=== PATIENT | male | born 1950 | race Caucasian/White ===

== ENCOUNTER 2017-04-18 15:45 | Emergency (ER) | payer OTHER ==
[~2017-04-18] VITALS: Ht 177.8 cm; Wt 106.9 kg
[~2017-04-18 15:45] MED LIST: ASPCH81 PO; CLX20 PO; CRS10 PO; LEVO1TAB PO; LISI-461 PO; MULTTAB58 PO
[2017-04-18 15:52] VITALS: TEMP 36.6; Ht 177.8 cm; Wt 106.9 kg
[2017-04-18] MEDS ORDERED: LIDOCAINE/EPINEPHRINE 1% 20 ML VIAL INFIL STA (16:08)
[2017-04-18] MEDS ORDERED: IBUP-103 PO (16:25)
[2017-04-18] MEDS ORDERED: ASPI81TA28 PO (16:25)
[2017-04-18] MEDS ORDERED: CITA20TA4 PO (16:25)
[2017-04-18] MEDS ORDERED: FLUT0.15 NAE (16:25)
[2017-04-18] MEDS ORDERED: LOSA50TA54 PO (16:25)
[2017-04-18] MEDS ORDERED: LEVO150T9 PO (16:25)
[2017-04-18] MEDS ORDERED: CRS/10 PO (16:25)
[2017-04-18] MEDS ORDERED: TRAV0.00 OPB (16:25)
[2017-04-18] MEDS ORDERED: MULT-506 PO (16:26)
[2017-04-18] MEDS ORDERED: CHLORHEXIDINE GLUCONATE 0.12% 480 ML MT STA (17:13)
[2017-04-18] MEDS ORDERED: AMOX500T3 PO (17:18)
--- NOTE | 2017-04-18 17:24 | EMERGENCY ROOM VISIT NOTE ---
ED Visit Note First contact with patient: 15:56 CHIEF COMPLAINT: Facial laceration HISTORY OF PRESENT ILLNESS: This 66-year-old male patient presents emergency department ambulatory, complaining of a laceration to the face, just superior to the upper lip, and through the inner gum. The patient states he always eating earlier today, and talking with family. He states he began laughing, however he has been dealing with a sinusitis for a while which has an associated cough. The patient states when he starts laughing, heat and began coughing, and he went into his office due to the cough. The patient states he had his head down, was leaned over the trash can, then when he attempted to rise , he hit his face off of the corner of his desk. The patient did fracture a tooth, and states he has a laceration from the inner gum which communicates with the outer skin. There was no loss of consciousness, vomiting, or unusual behavior afterwards. Denies neck pain. No headache, nausea, or blurred vision. There is moderate bleeding. The patient rates the pain as minimal and 4/10. The patient's tetanus shot is up to date. The patient is not on blood thinners, however he does take a baby aspirin per day. REVIEW OF SYSTEMS: A 6 system review of systems was completed with positives and pertinent negatives listed in the HPI. ALLERGIES: None MEDICATIONS: Lisinopril, Crestor, Synthroid, aspirin, Celexa, multivitamin PMH: Hypertension, hyperlipidemia, hypothyroidism SOCIAL HISTORY: The patient lives locally with family. She denies drug, alcohol , tobacco use. PHYSICAL EXAM: Vital Signs: Reviewed Nurse's notes, vital signs stable. GENERAL : This is a 66-year-old white male, in no acute distress, well-developed, well- nourished. NEURO: The patient is alert and oriented to person place and time. No focal neurological defects. EYES: Pupils are round, equal, and react to light. EOMI. EARS: No hemotympanum. NECK: Supple. No cervical spine tenderness. FACE: No facial bone tenderness or mandibular tenderness. The mouth can open fully. The teeth are well aligned. No loose or chipped teeth. SKIN: There is a 2 cm very irregularly shaped laceration on the skin between the upper vermilion border and nose. The edges gape apart with traction. There is mild active bleeding and no foreign material in the wound. The wound does communicate to the inner gum, and there is a 1cm laceration within the upper gum intra-orally. The #11 tooth is fractured. Capillary refill less than two seconds. Normal sensation to light and sharp touch. EMERGENCY DEPARTMENT COURSE: I examined the patient. Verbal consent was obtained to perform the procedure. Using sterile technique the wound was cleansed with Betadine. The area was sterilely draped. 2 ml of 1% lidocaine with epinephrine was used to anesthetize the laceration on the face. Once the patient was anesthetized, the wound was copiously irrigated under pressure with sterile saline. The wound was explored and was as described above. The laceration was repaired using 8 simple interrupted 6-0 nylon sutures with the wound edges being well approximated. The laceration on the internal lip was then anesthetized with approximately 1ml of 1% lidocaine with epinephrine. The wound was copiously irrigated under pressure with sterile saline. The laceration was repaired using 3 interrupted 5-0 Vicryl sutures with the wound edges being well approximated. The patient tolerated the procedure well. Hemostasis was achieved. The area was cleaned with sterile saline and dressed with bacitracin ointment. The patient's blood pressure was re-checked several times and continued to be elevated. The patient states he feels that he is very worked up and stressed at the moment. He will follow-up with his PCP and re- check his BP tomorrow. The patient was discharged home in good condition. Blood Pressure Screening: Patient was found to have a slightly elevated blood pressure due to circumstances. I do not believe that the patient requires hypertension monitoring. I attest that I have personally reviewed the patient's current medication list. DIFFERENTIAL DIAGNOSIS: Laceration, dental fracture, contusion, abrasion, intraoral laceration, and others DIAGNOSIS: Facial laceration, intraoral laceration, tooth fracture Current/Historical Medications Scheduled Amoxicillin (Amoxil), 1 TAB PO TID Aspirin (Aspirin Ec), 81 MG PO DAILY Citalopram Hydrobromide (Citalopram Hydrobromide), 20 MG PO DAILY Levothyroxine Sodium (Levothyroxine Sodium), 150 MCG PO DAILY Losartan Potassium (Cozaar), 50 MG PO DAILY Multivitamin (Multivitamin), 1 TAB PO DAILY Rosuvastatin Calcium (Crestor), 10 MG PO DAILY Travoprost (Travatan Z), 1 DROP OPB HS Scheduled PRN Fluticasone Propionate (Nasal) (Flonase Allergy Relief), 2 SPRAYS LUIS ENRIQUE DAILY PRN for Nasal Congestion Ibuprofen Tab (Advil), 400 MG PO Q4H PRN for Pain Allergies Coded Allergies: No Known Allergies (Unverified , 06/09/11) Vital Signs Date Time Temp Pulse Resp B/P (MAP) Pulse Ox O2 Delivery O2 Flow Rate FiO2 04/18/17 17:40 67 16 161/109 95 Room Air 04/18/17 15:52 36.6 73 18 189/101 97 Room Air Medications Administered Medications (Trade) Dose Ordered Sig/Geri Route Start Time Stop Time Status Last Admin Dose Admin Lidocaine/ Epinephrine (Xylocaine/Epine 1% Inj) 20 ml NOW STAT INFIL 04/18/17 16:08 04/18/17 16:10 DC 04/18/17 16:15 20 ML Chlorhexidine Gluconate (Peridex Oral Soln) 15 ml BID STAT MT 04/18/17 17:13 04/18/17 17:15 DC 04/18/17 17:43 15 ML Departure Information Impression Primary Impression: Laceration of intraoral region without complication Additional Impressions: Facial laceration Tooth fracture Dispostion Home / Self-Care Condition GOOD Prescriptions Amoxicillin (AMOXIL) 500 Mg Tab 1 TAB PO TID for 7 Days, #21 TAB Prov: Ольга King PA-C 04/18/17 Referrals Manuel Rivas D.OMichael (PCP) Patient Instructions ED Laceration Facial Sutr Tape, [facility], [facility] Additional Instructions You have received 8 sutures on your face. These sutures are NOT dissolvable and WILL need to be removed by a health care provider in 4-5 days. You can return to the Emergency Department or contact your Primary Care Provider to have the sutures removed. You did receive 3 absorbable sutures inside the upper lip which will dissolve on their own. If the laceration has healed, but the knot remains, the knot may be removed by a healthcare provider. You were prescribed amoxicillin to be taken 3 times daily. This is an antibiotic. All antibiotics have the potential to cause diarrhea. Stop this medication and contact a medical provider if you were to develop any significant adverse side effects including: wheezing, shortness of breath, passing out, vomiting, or a diffuse rash. Always take antibiotics as directed and COMPLETE the ENTIRE course regardless of the improvement of your symptoms. You were given chlorhexidine mouthwash to be used twice daily to help prevent infection. You should swish and spit this mouthwash. Keep food lukewarm or cold and soft. You should avoid food which may get stuck within the laceration inside of the mouth. Food which is too hot may dissolve the sutures before the wound has fully healed. You may swish and spit with ice water to help with pain and bleeding. Proper wound care is essential for adequate wound healing and infection prevention. You can shower and clean the wound with soap and water. Do not scour over the wound, pat dry with a towel. Do not submerse the wound (i.e. bathe or dish wash) until the sutures have been removed. You can use an antibiotic ointment with a dressing over the wound for the next 3-4 days. After this time you may leave the wound dry and open to the air. If crust develops over the wound you can use a Q-tip to apply a 1:1 peroxide:water solution to clean the wound. Look for signs of infection of the wound including: increased pain, swelling, foul discharge, streaking, or increased temperature. If any of these are noticed you should return to the Emergency Department for further assessment and treatment. As with any laceration you may have received nerve damage to the surrounding tissues. This damage may or may not be permanent. You should keep the area covered with sunscreen for the first 6 months to 1 year when at risk for exposure to help minimize scarring. You can also use scar reducing creams or Vitamin E oil to help minimize scarring. For pain control, you can use the following [id number] medicines (if >12 yo): Ibuprofen(Motrin, Advil) may be used for fever or pain. Use 600mg every six hours as needed. Take with food. Avoid using more than 2400mg in a 24 hour period. Do not use 2400mg per day for more than three consecutive days without physician direction. Prolonged inappropriate use can lead to stomach upset or ulcers. (AND/OR) Acetaminophen(Tylenol) may be used for fever or pain. Use 1000mg every six hours as needed. Avoid using more than 3000mg in a 24 hour period. Return to the emergency department if your symptoms worsen despite treatment course outlined above. Follow-up with the dentist at your scheduled appointment tomorrow. Problem Qualifiers Primary Impression: Laceration of intraoral region without complication Encounter type: initial encounter Qualified Codes: S01.512A - Laceration without foreign body of oral cavity, initial encounter Additional Impressions: Facial laceration Encounter type: initial encounter Qualified Codes: S01.81XA - Laceration without foreign body of other part of head, initial encounter Tooth fracture Encounter type: initial encounter Fracture type: open Qualified Codes: S02.5XXB - Fracture of tooth (traumatic), initial encounter for open fracture
[2017-04-18 17:40] VITALS: BP 161/109; PULSE 67; O2SAT 95
== END 2017-04-18 17:50 | disposition home or self-care (01) ==
LOC: C.EDB 15:46 → C.EDD 17:50
DX: S01.81XA Laceration without foreign body of other part of head, initial encounter (principal); S01.512A Laceration without foreign body of oral cavity, initial encounter; S02.5XXB Fracture of tooth (traumatic), initial encounter for open fracture; W22.8XXA Striking against or struck by other objects, initial encounter; Y92.9 Unspecified place or not applicable; I10 Essential (primary) hypertension; E78.5 Hyperlipidemia, unspecified; E03.9 Hypothyroidism, unspecified

== ENCOUNTER 2022-05-21 10:29 | Observation (INO) ==
[2022-05-21] MEDS ORDERED: SODIUM CHLORIDE 0.9% 1000ML 500 ML IV ONE (11:04)
--- NOTE | 2022-05-21 11:06 | Emergency Department Note ---
Impression & Plan TIA (transient ischemic attack) ADMIT ED Provider Note HPI: The patient is a very pleasant 71-year-old gentleman with history of hyperlipidemia, hypertension, chronic sinusitis, presents the emergency department with a chief complaint of generalized weakness. Patient states that over the past 3 to 4 days he has had a sensation of generally feeling weak and ill. He states he has had some night sweats, patient also states that he has had intermittent episodes of bilateral lower extremity "numbness" as well as the same sensation in his left upper extremity. He states the symptoms have been intermittent over the past 2 days. On arrival here to the ED the patient is hypertensive but otherwise hemodynamically stable, he is saturating well on room air on arrival, he is afebrile on arrival. ROS: - Per HPI *Outpatient medications and allergy history reviewed. *Pertinent external medical records reviewed. PE: General: Alert HEENT: Normocephalic, trachea midline Eyes: Extraocular eye movement is intact, no scleral erythema Pulmonary: Clear to auscultation bilaterally, no wheezing Cardio: Regular rate and rhythm GI: Abdomen is soft, nontender : No suprapubic tenderness MSK: No evidence of trauma or malformation of the extremities, no edema Skin: No evidence of rash Neuro: Alert, no focal deficits, equal bilateral orthotic and prosthetic technician strength, no drift of the upper extremities or lower extremities with testing against gravity, symmetrical facial movements are appreciated Psychiatric: Cooperative metaphysician: - An order was placed for continuous cardiac monitoring - Patient was noted to be in sinus rhythm with a rate of 90 EKG: (As interpreted by myself): Rate: 95 Rhythm: Sinus rhythm Intervals: [place] interval prolonged at 208 ms, otherwise within normal limits ST changes: No ST elevation Time: 1104 Interventions provided in ED: -IV labetalol NIH STROKE SCALE: 1A: Level of consciousness Alert; keenly responsive 0 1B: Ask month and age Both questions right 0 1C: 'Blink eyes' & 'squeeze hands' Performs both tasks 0 2: Horizontal extraocular movements Normal 0 3: Visual chao No visual loss 0 4: Facial palsy Normal symmetry 0 5A: Left arm motor drift No drift for 10 seconds 0 5B: Right arm motor drift No drift for 10 seconds 0 6A: Left leg motor drift No drift for 5 seconds 0 6B: Right leg motor drift No drift for 5 seconds 0 7: Limb Ataxia No ataxia 0 8: Sensation Normal; no sensory loss 0 9: Language/aphasia Normal; no aphasia 0 10: Dysarthria Normal 0 11: Extinction/inattention No abnormality 0 TOTAL NIH SCORE =0 Medical Decision Making: Patient is a 71-year-old gentleman who presented to the emergency department with transient paresthesias and a generalized feeling of illness. IV was established, lab work obtained, patient was placed on choker hooker. Patient's blood pressure remained persistently elevated in the 190 systolic and therefore was given a dose of IV labetalol with good improvement. He denies any chest pain or shortness of breath. EKG shows sinus rhythm without any acute ischemic changes. Troponin is negative. Given the patient's complaint of transient paresthesias including of the left upper extremity and bilateral lower extremities, CT imaging of the brain without contrast as well as CT angiography was obtained that does not show any evidence of acute or subacute stroke. On reassessment patient states he feels improved, states that he does feel some improvement in his symptoms following a dose of IV labetalol with improvement in his blood pressures into the 130s. I do have concern that given the patient's blood pressure, age, that he may have been experiencing a transient ischemic attack. He required IV medications here in the ED to bring his blood pressure down. Patient does admit to intermittent bilateral lower extremity numbness sensation. His motor function is intact on my exam. He does not have any red flag findings for cauda equina syndrome, no urinary incontinence or retention, no saddle anesthesia. No back pain. I discussed possible admission with the patient and his for secondary TIA work-up and they are in agreement. Case was then discussed with the on-call hospitalist, Dr. Sanchez with [facility], who is in agreement to admit the patient to a telemetry bed for further management. Patient was admitted in stable condition. Disposition discussion held by myself with: Patient and * CRITICAL CARE TIME: ( 36 ) minutes -Management of hypertensive urgency/emergency with transient paresthesias and TIA symptoms requiring IV antihypertensives for improvement, time spent at the bedside, discussion with other physicians and arrangement of admission Diagnosis: 1. TIA symptoms 2. Transient paresthesias 3. Hypertensive urgency 4. Generalized weakness of unknown origin Disposition: Admission Daniel Salazar DO Emergency Medicine Past Med/Surg History Medical History (Updated 05/21/22 @ 14:31 by Daniel Salazar DO) Anxiety Depression Glaucoma Hyperlipidemia Hypertension Hyperthyroidism Surgical History History of adenoidectomy History of cholecystectomy History of colonoscopy History of endoscopic sinus surgery History of tonsillectomy Hx of prostate biopsy HX OF ELEVATED PSA LEVELS (BENIGN) Family History Father Family history of diabetes mellitus Sister Family history of diabetes mellitus Brother Family history of diabetes mellitus Social History Smoking Status: Never smoker Second Hand Exposure: No; Hx Alcohol Use: Yes Alcohol type: hard liquor Hx Substance Use: No Preferred Language: Uzbek Communication Ability: Effective 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 Required: No Beliefs That Will Affect Care: None Current Living Situation: Spouse Feels Safe at Home: Yes Assistive Devices: Glasses Allergies Allergies Allergy/AdvReac Type Severity Reaction Status Date / Time No Known Allergies Allergy Verified 03/13/18 08:37 Home Meds Home Medications Medication Instructions Recorded Confirmed albuterol sulfate 90 mcg/actuation 1 puff inhalation 2XD PRN 05/21/22 05/21/22 aerosol inhaler Shortness Of Breath amlodipine 5 mg tablet 5 mg PO DAILY 05/21/22 05/21/22 aspirin 81 mg capsule 81 mg PO DAILY 05/21/22 05/21/22 azelastine 137 mcg (0.1 %) nasal 1 spray intranasal BID 05/21/22 05/21/22 spray aerosol citalopram 20 mg tablet 20 mg PO DAILY 05/21/22 05/21/22 levothyroxine 150 mcg tablet 150 mcg PO DAILY 05/21/22 05/21/22 losartan 50 mg tablet 50 mg PO DAILY 05/21/22 05/21/22 rosuvastatin 10 mg tablet 10 mg PO DAILY 05/21/22 05/21/22 tamsulosin 0.4 mg capsule 0.4 mg PO DAILY 05/21/22 05/21/22 Results & Data (ED) Vital Signs Vital Signs - 24 hr 05/21/22 10:31 05/21/22 11:01 05/21/22 13:26 Temperature 36.5 C Temperature Source Temporal Artery Scan Pulse Rate 98 H Pulse Rate [Right Brachial] 93 H Pulse Rhythm [Right Brachial] Regular Pulse Strength [Right Brachial] Normal Respiratory Rate 18 19 Respiratory Effort / Characteristics Non-Labored Spontaneous Non-Labored Spontaneous Respiratory Depth Normal Normal Respiratory Pattern Regular Regular Blood Pressure 199/113 H Blood Pressure [Right Arm] 191/91 H 193/96 H Blood Pressure Mean 141 Blood Pressure Mean [Right Arm] 124 128 Blood Pressure Position Sitting Blood Pressure Position [Right Arm] Lying Lying Pulse Oximetry 98 99 Oxygen Delivery Method Room Air Room Air Sepsis Recent Fever Within 48 Hours No Sepsis New/Unexplained Change in Mental Status N/A Sepsis Action Taken by Nursing No Action Required 05/21/22 14:30 05/21/22 14:32 Temperature Temperature Source Pulse Rate Pulse Rate [Right Brachial] Pulse Rhythm [Right Brachial] Pulse Strength [Right Brachial] Respiratory Rate Respiratory Effort / Characteristics Respiratory Depth Respiratory Pattern Blood Pressure Blood Pressure [Right Arm] 144/95 H 144/95 H Blood Pressure Mean Blood Pressure Mean [Right Arm] 111 111 Blood Pressure Position Blood Pressure Position [Right Arm] Pulse Oximetry Oxygen Delivery Method Sepsis Recent Fever Within 48 Hours Sepsis New/Unexplained Change in Mental Status Sepsis Action Taken by Nursing Laboratory Data 05/21/22 11:10 05/21/22 12:35 Lab Results 05/21/22 05/21/22 05/21/22 Range/Units 11:10 11:10 11:10 WBC 6.87 (4.8-10.8) K/ul RBC 5.05 (4.63-6.08) M/uL Hgb 15.9 (14.0-18.0) g/dl Hct 45.2 (40.1-51.0) % MCV 89.5 (80.0-100.0) fL MCH 31.5 (25.0-34.0) pg MCHC 35.2 (32.0-36.0) g/dL RDW Std Deviation 42.4 (36.4-46.3) fL RDW Coeff of Ayesha 12.9 (11.5-14.5) % Plt Count 161 (130-400) K/uL MPV 10.1 (9.4-12.4) fL Immature Gran % (Auto) 0.6 % Neut % (Auto) 58.1 % Lymph % (Auto) 32.3 % Den[place] % (Auto) 8.3 % Eos % (Auto) 0.0 % Baso % (Auto) 0.7 % Neut # (Auto) 3.99 (1.4-6.5) K/uL Lymph # (Auto) 2.22 (1.2-3.4) K/uL [place] # (Auto) 0.57 (0.24-0.82) K/uL Eos # (Auto) 0.00 (0-0.50) K/uL Baso # (Auto) 0.05 (0-0.2) K/uL Immature Gran # (Auto) 0.04 H (0.00-0.02) K/uL PT Cancelled INR Cancelled APTT Cancelled PTT Ratio Cancelled Sodium 139 (136-145) mmol/L Potassium TNP Chloride 106 (98-107) mmol/L Carbon Dioxide 26 (21-32) mmol/L Anion Gap 7 (3-11) BUN 13 (6-23) mg/dl Creatinine 0.92 (0.6-1.4) mg/dl Est Cr Clr Drug Dosing 92.6 ml/min Est GFR ( Amer) 98.0 ml/min Est GFR (Non-Af Amer) 84.6 ml/min BUN/Creatinine Ratio 14.1 (10-20) Glucose 99 (70-99(Fasting)) mg/dl POC Glucose (70-99) mg/dl Calcium 9.1 (8.5-10.1) mg/dl Magnesium 2.1 (1.7-2.4) mg/dl Total Bilirubin 0.8 (0.2-1.0) mg/dl AST TNP ALT 13 (7-52) U/L Alkaline Phosphatase 74 (34-104) U/L Troponin I High Sens 15.6 (0-20) pg/ml Total Protein 7.0 (6.0-8.3) gm/dl Albumin 4.4 (3.4-5.0) gm/dl Globulin 2.6 (2.5-4.0) gm/dl Albumin/Globulin Ratio 1.7 (0.9-2) SARS-CoV-2 (PCR) (Negative) Influenza Type A (PCR) (Neg) Influenza Type B (PCR) (Neg) RSV (RT-PCR) (Neg) 05/21/22 05/21/22 05/21/22 Range/Units 11:20 11:26 12:34 WBC (4.8-10.8) K/ul RBC (4.63-6.08) M/uL Hgb (14.0-18.0) g/dl Hct (40.1-51.0) % MCV (80.0-100.0) fL MCH (25.0-34.0) pg MCHC (32.0-36.0) g/dL RDW Std Deviation (36.4-46.3) fL RDW Coeff of Ayesha (11.5-14.5) % Plt Count (130-400) K/uL MPV (9.4-12.4) fL Immature Gran % (Auto) % Neut % (Auto) % Lymph % (Auto) % [place] % (Auto) % Eos % (Auto) % Baso % (Auto) % Neut # (Auto) (1.4-6.5) K/uL Lymph # (Auto) (1.2-3.4) K/uL [place] # (Auto) (0.24-0.82) K/uL Eos # (Auto) (0-0.50) K/uL Baso # (Auto) (0-0.2) K/uL Immature Gran # (Auto) (0.00-0.02) K/uL PT 10.8 INR 1.0 APTT 26.6 PTT Ratio 1.0 Sodium (136-145) mmol/L Potassium Chloride (98-107) mmol/L Carbon Dioxide (21-32) mmol/L Anion Gap (3-11) BUN (6-23) mg/dl Creatinine (0.6-1.4) mg/dl Est Cr Clr Drug Dosing ml/min Est GFR ( Amer) ml/min Est GFR (Non-Af Amer) ml/min BUN/Creatinine Ratio (10-20) Glucose (70-99(Fasting)) mg/dl POC Glucose 97 (70-99) mg/dl Calcium (8.5-10.1) mg/dl Magnesium (1.7-2.4) mg/dl Total Bilirubin (0.2-1.0) mg/dl AST ALT (7-52) U/L Alkaline Phosphatase (34-104) U/L Troponin I High Sens (0-20) pg/ml Total Protein (6.0-8.3) gm/dl Albumin (3.4-5.0) gm/dl Globulin (2.5-4.0) gm/dl Albumin/Globulin Ratio (0.9-2) SARS-CoV-2 (PCR) NEGATIVE (Negative) Influenza Type A (PCR) Negative (Neg) Influenza Type B (PCR) Negative (Neg) RSV (RT-PCR) Negative (Neg) 05/21/22 Range/Units 12:35 WBC (4.8-10.8) K/ul RBC (4.63-6.08) M/uL Hgb (14.0-18.0) g/dl Hct (40.1-51.0) % MCV (80.0-100.0) fL MCH (25.0-34.0) pg MCHC (32.0-36.0) g/dL RDW Std Deviation (36.4-46.3) fL RDW Coeff of Ayesha (11.5-14.5) % Plt Count (130-400) K/uL MPV (9.4-12.4) fL Immature Gran % (Auto) % Neut % (Auto) % Lymph % (Auto) % [place] % (Auto) % Eos % (Auto) % Baso % (Auto) % Neut # (Auto) (1.4-6.5) K/uL Lymph # (Auto) (1.2-3.4) K/uL [place] # (Auto) (0.24-0.82) K/uL Eos # (Auto) (0-0.50) K/uL Baso # (Auto) (0-0.2) K/uL Immature Gran # (Auto) (0.00-0.02) K/uL PT INR APTT PTT Ratio Sodium (136-145) mmol/L Potassium 3.9 Chloride (98-107) mmol/L Carbon Dioxide (21-32) mmol/L Anion Gap (3-11) BUN (6-23) mg/dl Creatinine (0.6-1.4) mg/dl Est Cr Clr Drug Dosing ml/min Est GFR ( Amer) ml/min Est GFR (Non-Af Amer) ml/min BUN/Creatinine Ratio (10-20) Glucose (70-99(Fasting)) mg/dl POC Glucose (70-99) mg/dl Calcium (8.5-10.1) mg/dl Magnesium (1.7-2.4) mg/dl Total Bilirubin (0.2-1.0) mg/dl AST 16 ALT (7-52) U/L Alkaline Phosphatase (34-104) U/L Troponin I High Sens (0-20) pg/ml Total Protein (6.0-8.3) gm/dl Albumin (3.4-5.0) gm/dl Globulin (2.5-4.0) gm/dl Albumin/Globulin Ratio (0.9-2) SARS-CoV-2 (PCR) (Negative) Influenza Type A (PCR) (Neg) Influenza Type B (PCR) (Neg) RSV (RT-PCR) (Neg) Administered Medications Discontinued Medications Sodium Chloride (Nss 1000ml) 500 mls @ 999 mls/hr IV .Q31M ONE Stop: 05/21/22 11:34 Last Infusion: 05/21/22 11:52 Dose: 0 mls/hr Documented By: Admin: 05/21/22 11:18 Dose: 999 mls/hr Documented By: EWA Ioversol (Optiray 320 500ml) 117 ml IV ONCE ONE Stop: 05/21/22 12:10 Last Admin: 05/21/22 12:10 Dose: 117 ml Documented By: NILE Labetalol HCl (Labetalol Hcl Iv 5 Mg/Ml 20ml) 20 mg IV NOW STA Stop: 05/21/22 13:41 Last Admin: 05/21/22 13:45 Dose: 20 mg Documented By: EAW Co-signed By: STEVO Imaging Data Radiologist's Impression: Head CT 05/21/22 11:03 CT angio head w con, CT angio neck with con, CT head/brain wo con CLINICAL HISTORY: 71 years-old Male with neuro deficit, acute stroke suspected. Acute strokelike symptoms COMPARISON STUDY: None TECHNIQUE: Unenhanced axial CT scan of the brain is performed. Subsequently, following the IV administration of 117 cc of Optiray, CT angiogram of the head and neck was performed from the skull base to the vertex. Images are reviewed in the axial, sagittal, and coronal planes. 3-D MIPS images are created and assessed. IV contrast was administered without complication. All measurements were obtained according to NASCET criteria. A dose lowering technique was utilized adhering to the principles of ALARA. CT DOSE: 1242.62 mGy.cm FINDINGS: CT BRAIN: There is no acute intracranial hemorrhage, midline shift, hydrocephalus, intracranial mass, territorial ischemia or abnormal extra-axial collections. No abnormal intra-axial or extra-axial enhancement. Coarse calcifications of the falx cerebri. Mild involutional changes of the brain parenchyma. Mastoid air cells and middle ear cavities are clear. No calvarial fracture. Trace mastoid effusions. Moderate to severe mucosal thickening of the paranasal sinuses with chronic postoperative changes of the paranasal sinuses and nasal turbinates. Prior bilateral lens repair. CT ANGIOGRAM OF THE HEAD AND NECK: Three-vessel morphology of the thoracic aorta. There is patency of the innominate and imaged subclavian arteries. Moderate atherosclerotic plaque of the carotid bulbs and proximal cervical segments of the internal carotid arteries, right greater than left resulting in less than 50% stenosis. The bilateral anterior and middle cerebral arteries are also patent. The vertebrobasilar system and posterior cerebral arteries are patent. There is mild multifocal luminal narrowing of the posterior cerebral arteries. There is no aneurysm, high-grade stenosis, or proximal branch occlusion identified. Dural sinuses appear patent. No acute cervical spine fracture. The lung apices are clear without pneumothorax. Unremarkable soft tissues. IMPRESSION: 1. No acute intracranial abnormality. 2. Moderate atherosclerotic plaque of the right greater than left carotid bulbs and proximal cervical segments of the internal carotid arteries resulting in less than 50% stenosis. 3. Otherwise unremarkable CTA of the head and neck. 4. Moderate to severe paranasal sinus disease. ACT 112: Negative or not required by law. The above report was generated using voice recognition software. It may contain grammatical, syntax or spelling errors. Electronically signed by: Leo Hernandez M.D. 05/21/2022 12:46 PM Head CTA 05/21/22 11:03 CT angio head w con, CT angio neck with con, CT head/brain wo con CLINICAL HISTORY: 71 years-old Male with neuro deficit, acute stroke suspected. Acute strokelike symptoms COMPARISON STUDY: None TECHNIQUE: Unenhanced axial CT scan of the brain is performed. Subsequently, following the IV administration of 117 cc of Optiray, CT angiogram of the head and neck was performed from the skull base to the vertex. Images are reviewed in the axial, sagittal, and coronal planes. 3-D MIPS images are created and assessed. IV contrast was administered without complication. All measurements were obtained according to NASCET criteria. A dose lowering technique was utilized adhering to the principles of ALARA. CT DOSE: 1242.62 mGy.cm FINDINGS: CT BRAIN: There is no acute intracranial hemorrhage, midline shift, hydrocephalus, intracranial mass, territorial ischemia or abnormal extra-axial collections. No abnormal intra-axial or extra-axial enhancement. Coarse calcifications of the falx cerebri. Mild involutional changes of the brain parenchyma. Mastoid air cells and middle ear cavities are clear. No calvarial fracture. Trace mastoid effusions. Moderate to severe mucosal thickening of the paranasal sinuses with chronic postoperative changes of the paranasal sinuses and nasal turbinates. Prior bilateral lens repair. CT ANGIOGRAM OF THE HEAD AND NECK: Three-vessel morphology of the thoracic aorta. There is patency of the innominate and imaged subclavian arteries. Moderate atherosclerotic plaque of the carotid bulbs and proximal cervical segments of the internal carotid arter ies, right greater than left resulting in less than 50% stenosis. The bilateral anterior and middle cerebral arteries are also patent. The vertebrobasilar system and posterior cerebral arteries are patent. There is mild multifocal luminal narrowing of the posterior cerebral arteries. There is no aneurysm, high-grade stenosis, or proximal branch occlusion identified. Dural sinuses appear patent. No acute cervical spine fracture. The lung apices are clear without pneumoth orax. Unremarkable soft tissues. IMPRESSION: 1. No acute intracranial abnormality. 2. Moderate atherosclerotic plaque of the right greater than left carotid bulbs and proximal cervical segments of the internal carotid arteries resulting in less than 50% stenosis. 3. Otherwise unremarkable CTA of the head and neck. 4. Moderate to severe paranasal sinus disease. ACT 112: Negative or not required by law. The above report was generated using voice recognition software. It may contain grammatical, syntax or spelling errors. Electronically signed by: Leo Hernandez M.D. 05/21/2022 12:46 PM Neck CTA 05/21/22 11:03 CT angio head w con, CT angio neck with con, CT head/brain wo con CLINICAL HISTORY: 71 years-old Male with neuro deficit, acute stroke suspected. Acute strokelike symptoms COMPARISON STUDY: None TECHNIQUE: Unenhanced axial CT scan of the brain is performed. Subsequently, following the IV administration of 117 cc of Optiray, CT angiogram of the head and neck was performed from the skull base to the vertex. Images are reviewed in the axial, sagittal, and coronal planes. 3-D MIPS images are created and assess ed. IV contrast was administered without complication. All measurements were obtained according to NASCET criteria. A dose lowering technique was utilized adhering to the principles of ALARA. CT DOSE: 1242.62 mGy.cm FINDINGS: CT BRAIN: There is no acute intracranial hemorrhage, midline shift, hydrocephalus, intracranial mass, territorial ischemia or abnormal extra-axial collections. No abnormal intra-axial or extra-axial enhancement. Coarse calcifications of the falx cerebri. Mild involutional changes of the brain parenchyma. Mastoid air cells and middle ear cavities are clear. No calvarial fracture. Trace mastoid effusions. Moderate to severe mucosal thickening of the paranasal sinuses with chronic postoperative changes of the paranasal sinuses and nasal turbinates. Prior bilateral lens repair. CT ANGIOGRAM OF THE HEAD AND NECK: Three-vessel morphology of the thoracic aorta. There is patency of the innominate and imaged subclavian arteries. Moderate atherosclerotic plaque of the carotid bulbs and proximal cervical segments of the internal carotid arteries, right greater than left resulting in less than 50% stenosis. The bilateral anterior and middle cerebral arteries are also patent. The vertebrobasilar system and posterior cerebral arteries are patent. There is mild multifocal luminal narrowing of the posterior cerebral arteries. There is no aneurysm, high-grade stenosis, or proximal branch occlusion identified. Dural sinuses appear patent. No acute cervical spine fracture. The lung apices are clear without pneumothorax. Unremarkable soft tissues. IMPRESSION: 1. No acute intracranial abnormality. 2. Moderate atherosclerotic plaque of the right greater than left carotid bulbs and proximal cervical segments of the internal carotid arteries resulting in less than 50% stenosis. 3. Otherwise unremarkable CTA of the head and neck. 4. Moderate to severe paranasal sinus disease. ACT 112: Negative or not required by law. The above report was generated using voice recognition software. It may contain grammatical, syntax or spelling errors. Electronically signed by: Leo Hernandez M.D. 05/21/2022 12:46 PM Discharge Plan Visit Data Chief Complaint: Illness Stated Complaint: TINGLING DOWN LEG, LEFT ARM NUMBNESS ED Provider: Daniel Salazar Discharge Problem: TIA (transient ischemic attack) Forms Stand Alone Forms: My [facility] Prescriptions Prescriptions: No Action losartan 50 mg tablet 50 mg PO DAILY amlodipine 5 mg tablet 5 mg PO DAILY citalopram 20 mg tablet 20 mg PO DAILY tamsulosin 0.4 mg capsule 0.4 mg PO DAILY levothyroxine 150 mcg tablet 150 mcg PO DAILY azelastine 137 mcg (0.1 %) aerosol,spray 1 spray INTRANASAL BID albuterol sulfate 90 mcg/actuation HFA aerosol inhaler 1 puff INHALATION 2XD PRN (Reason: Shortness Of Breath) rosuvastatin 10 mg tablet 10 mg PO DAILY aspirin 81 mg Capsule 81 mg PO DAILY Referrals Referrals: Manuel Rivas DO [Physician] -
[2022-05-21 11:28] LABS: Basophils # (auto) 0.05 K/uL (0-0.2); Basophils % (auto) 0.7 %; Hematocrit (blood only) 45.2 % (40.1-51.0); Hemoglobin 15.9 g/dl (14.0-18.0); Immature Granulocytes # (auto) 0.04 K/uL (0.00-0.02); Immature Granulocytes % (auto) 0.6 %; Lymphocytes # (auto) 2.22 K/uL (1.2-3.4); Lymphocytes % (auto) 32.3 %; Mean Corpuscular Hemoglobin 31.5 pg (25.0-34.0); Mean Corpuscular Hgb Conc 35.2 g/dL (32.0-36.0); Mean Corpuscular Volume 89.5 fL (80.0-100.0); Mean Platelet Volume 10.1 fL (9.4-12.4); Monocytes # (auto) 0.57 K/uL (0.24-0.82); Monocytes % (auto) 8.3 %; Neutrophils # (auto) 3.99 K/uL (1.4-6.5); Neutrophils % (auto) 58.1 %; Platelet Count 161 K/uL (130-400); RDW Coefficient of Variation 12.9 % (11.5-14.5); RDW Standard Deviation 42.4 fL (36.4-46.3); Red Blood Count 5.05 M/uL (4.63-6.08); White Blood Count 6.87 K/ul (4.8-10.8)
[2022-05-21 12:00] LABS: Alanine Aminotransferase 13 U/L (7-52); Albumin Globulin Ratio 1.7 (0.9-2); Albumin Level 4.4 gm/dl (3.4-5.0); Alkaline Phosphatase 74 U/L (34-104); Anion Gap 7 (3-11); BUN Creatinine Ratio 14.1 (10-20); Bilirubin,Total 0.8 mg/dl (0.2-1.0); Blood Urea Nitrogen 13 mg/dl (6-23); Calcium 9.1 mg/dl (8.5-10.1); Carbon Dioxide 26 mmol/L (21-32); Chloride 106 mmol/L (98-107); Creatinine Clr Calc Pharmacy 92.6 ml/min; Est GFR (Non-African American) 84.6 ml/min; Globulin 2.6 gm/dl (2.5-4.0); Glucose 99 mg/dl (70-99(Fasting)); Magnesium 2.1 mg/dl (1.7-2.4); Sodium 139 mmol/L (136-145); Troponin I High Sensitivity 15.6 pg/ml (0-20)
[2022-05-21] MEDS ORDERED: OPTIRAY 320 500ml IV ONE (12:09)
[2022-05-21 12:12] LABS: Influenza A virus by PCR Negative (Neg); Influenza B virus by PCR Negative (Neg); RSV by PCR Negative (Neg); SARS CoV2 RNA(COVID-19) Ceph NEGATIVE (Negative)
--- NOTE | 2022-05-21 12:51 | CT Scan Report ---
CT angio head w con, CT angio neck with con, CT head/brain wo con CLINICAL HISTORY: 71 years-old Male with neuro deficit, acute stroke suspected. Acute strokelike s ymptoms COMPARISON STUDY: None TECHNIQUE: Unenhanced axial CT scan of the brain is performed. Subsequently, following the IV adminis tration of 117 cc of Optiray, CT angiogram of the head and neck was performed from the skull base to the vertex. Images are reviewed in the axial, sagittal, and coronal planes. 3-D MIPS images are creat ed and assessed. IV contrast was administered without complication. All measurements were obtained ac cording to NASCET criteria. A dose lowering technique was utilized adhering to the principles of KRISTIE Chen. CT DOSE: 1242.62 mGy.cm FINDINGS: CT BRAIN: There is no acute intracranial hemorrhage, midline shift, hydrocephalus, intracranial mass, territori al ischemia or abnormal extra-axial collections. No abnormal intra-axial or extra-axial enhancement. Coarse calcifications of the falx cerebri. Mild involutional changes of the brain parenchyma. Mastoi d air cells and middle ear cavities are clear. No calvarial fracture. Trace mastoid effusions. Modera te to severe mucosal thickening of the paranasal sinuses with chronic postoperative changes of the pa ranasal sinuses and nasal turbinates. Prior bilateral lens repair. CT ANGIOGRAM OF THE HEAD AND NECK: Three-vessel morphology of the thoracic aorta. There is patency of the innominate and imaged subclavi an arteries. Moderate atherosclerotic plaque of the carotid bulbs and proximal cervical segments of t he internal carotid arteries, right greater than left resulting in less than 50% stenosis. The bilate ral anterior and middle cerebral arteries are also patent. The vertebrobasilar system and posterior c erebral arteries are patent. There is mild multifocal luminal narrowing of the posterior cerebral art eries. There is no aneurysm, high-grade stenosis, or proximal branch occlusion identified. Dural sinu ses appear patent. No acute cervical spine fracture. The lung apices are clear without pneumothorax. Unremarkable soft t issues. IMPRESSION: 1. No acute intracranial abnormality. 2. Moderate atherosclerotic plaque of the right greater than left carotid bulbs and proximal cervical segments of the internal carotid arteries resulting in less than 50% stenosis. 3. Otherwise unremarkable CTA of the head and neck. 4. Moderate to severe paranasal sinus disease. ACT 112: Negative or not required by law. The above report was generated using voice recognition software. It may contain grammatical, syntax o r spelling errors. Electronically signed by: Leo Hernandez M.D. 05/21/2022 12:46 PM
[2022-05-21 12:58] LABS: Partial Thromboplastin Time 26.6 Seconds (21.0-31.0); Prothrombin Time 10.8 Seconds (9.0-12.0)
[2022-05-21 13:06] LABS: Potassium 3.9 mmol/L (3.5-5.1)
[2022-05-21] MEDS ORDERED: LABETALOL HCL IV 5 MG/ML 20ML IV STA (13:40)
[2022-05-21] MEDS ORDERED: ALPRAZolam 0.5 MG TABLET PO STA (15:21)
--- NOTE | 2022-05-21 15:43 | History & Physical Report ---
Date of Service May 21, 2022 Assessment & Plan (1) Stroke-like symptom: (2) Hypertensive urgency: Plan: 71-year-old male with past medical history of hypertension, hyperlipidemia presents with bilateral feet numbness. He also complains of generalized weakness and dry cough. Hypertensive to 199/[address] headno acute abnormality; moderate to severe paranasal sinus disease. CT angio head and neckmoderate atherosclerotic plaque of the right greater than left carotid bulbs and proximal cervical segments of the internal carotid arteries resulting in less than 50% stenosis. Plan; Patient has risk factor for stroke; will obtain MRI brain without contrast to rule out stroke. Echo with bubble study. Telemetry monitoring Continue on home aspirin and Lipitor. We will continue on amlodipine; increase losartan to 100 mg once daily for severe hypertension Obtain lipid panel, A1c and vitamin B12 level. Obtain TSH Obtain respiratory viral panel. Chronic conditions; Hypertensionlosartan increased to 100 mg once daily. Continue on amlodipine Hyperlipidemiacontinue rosuvastatin Depressioncontinue on citalopram BPHcontinue on tamsulosin. History of Present Illness Chief Complaint: Strokelike symptoms for 1 day Primary Care Provider: Devin Catherine MD History obtained from review of medical record and patient. Past medical history of chronic sinusitis, hypertension, hyperlipidemia, hypothyroidism, depression, BPH Patient reports bilateral lower extremity numbness and and numbness right upper extremity since last 2 days; more evident since last night. He denies any blurry vision, change in voice, facial droop, weakness of any part. He also complains of generalized weakness and fatigue. Complains of dry cough; attributes this to chronic sinusitis. He reports night sweats as well. He denies any headache, chest pain, shortness of breath, abdominal pain or urinary symptoms. Has history of hypertension; takes amlodipine and losartan. Reports that he is compliant with medications. He reports history of chronic sinusitis; recently completed antibiotic course. No history of smoking or drinking alcohol. On presentation to the ED, he was found to be hypertensive with blood pressure of 199/113; other vitals were stable. CBC and CMP were unremarkable. CT head was done; no acute abnormality. CTA is negative for any significant finding; has moderate atherosclerotic plaque of right greater than left carotid bulb and proximal cervical segment of internal carotid arteries resulting in less than 50% stenosis. Patient is admitted to telemetry for for hypertensive urgency and strokelike symptoms. Allergies Allergy/AdvReac Type Severity Reaction Status Date / Time No Known Allergies Allergy Verified 05/21/22 15:21 Home Medications Medication Instructions Recorded Confirmed Type albuterol sulfate 90 mcg/actuation 1 puff inhalation 2XD PRN 05/21/22 05/21/22 History aerosol inhaler Shortness Of Breath amlodipine 5 mg tablet 5 mg PO DAILY 05/21/22 05/21/22 History aspirin 81 mg capsule 81 mg PO DAILY 05/21/22 05/21/22 History azelastine 137 mcg (0.1 %) nasal 1 spray intranasal BID 05/21/22 05/21/22 History spray aerosol citalopram 20 mg tablet 20 mg PO DAILY 05/21/22 05/21/22 History levothyroxine 150 mcg tablet 150 mcg PO DAILY 05/21/22 05/21/22 History losartan 50 mg tablet 50 mg PO DAILY 05/21/22 05/21/22 History rosuvastatin 10 mg tablet 10 mg PO DAILY 05/21/22 05/21/22 History tamsulosin 0.4 mg capsule 0.4 mg PO DAILY 05/21/22 05/21/22 History Past Med/Surg History Medical History (Updated 05/21/22 @ 15:38 by Marquise Sanchez MD) Anxiety Depression Glaucoma Hyperlipidemia Hypertension Hyperthyroidism Surgical History History of adenoidectomy History of cholecystectomy History of colonoscopy History of endoscopic sinus surgery History of tonsillectomy Hx of prostate biopsy HX OF ELEVATED PSA LEVELS (BENIGN) Family History Father Family history of diabetes mellitus Sister Family history of diabetes mellitus Brother Family history of diabetes mellitus Social History Smoking Status: Never smoker Second Hand Exposure: No; Hx Alcohol Use: Yes Alcohol type: hard liquor Hx Substance Use: No Preferred Language: Danish Communication Ability: Effective Poultry Picker Required: No Beliefs That Will Affect Care: None Current Living Situation: Spouse Feels Safe at Home: Yes Assistive Devices: Glasses Review of Systems Review of Systems: All systems reviewed & are unremarkable except as noted in Subjective Physical Exam Physical Exam: Constitutional: WD/WN, vitals as above, NAD, sitting up in bed, pleasant, conversing easily Respiratory: normal respiratory effort, lungs clear to auscultation, no wheeze, rales, rhonchi. Normal insp/exp effort, no accessory muscle use Cardiovascular: RRR, no murmur, no edema Vessels: no JVD or carotid bruit Chest: normal inspection of chest Abdomen: normal bowel sounds, soft, nontender, no hepatosplenomegaly Musculoskeletal: no cyanosis or clubbing, extremities motor strength 5/5 Skin: no rashes, warm and dry normal turgor Neurologic: PERRL, EOMI, accommodation nl, no face palsy, no dysarthria CN's II- XI intact bilaterally and moves all extremities Psychiatric: A+Ox3, euthymic affect Lymphatic: no cervical or axillary lymphadenopathy : deferred Results & Data Results & Data ([facility]) Vital Signs (Past 12 Hours) Vital Signs Temp Pulse Pulse Resp BP BP Pulse Ox 05/21/22 14:32 144/95 H 05/21/22 14:30 144/95 H 05/21/22 13:26 193/96 H 05/21/22 11:01 93 H 19 191/91 H 99 05/21/22 10:31 36.5 C 98 H 18 199/113 H 98 O2 Del Method 05/21/22 14:32 05/21/22 14:30 05/21/22 13:26 05/21/22 11:01 Room Air 05/21/22 10:31 Room Air Laboratory Results Laboratory Results WBC 6.87 K/ul (4.8-10.8) 05/21/22 11:10 RBC 5.05 M/uL (4.63-6.08) 05/21/22 11:10 Hgb 15.9 g/dl (14.0-18.0) 05/21/22 11:10 Hct 45.2 % (40.1-51.0) 05/21/22 11:10 MCV 89.5 fL (80.0-100.0) 05/21/22 11:10 MCH 31.5 pg (25.0-34.0) 05/21/22 11:10 MCHC 35.2 g/dL (32.0-36.0) 05/21/22 11:10 RDW Std Deviation 42.4 fL (36.4-46.3) 05/21/22 11:10 RDW Coeff of Ayesha 12.9 % (11.5-14.5) 05/21/22 11:10 Plt Count 161 K/uL (130-400) 05/21/22 11:10 MPV 10.1 fL (9.4-12.4) 05/21/22 11:10 Immature Gran % (Auto) 0.6 % 05/21/22 11:10 Neut % (Auto) 58.1 % 05/21/22 11:10 Lymph % (Auto) 32.3 % 05/21/22 11:10 Gregg % (Auto) 8.3 % 05/21/22 11:10 Eos % (Auto) 0.0 % 05/21/22 11:10 Baso % (Auto) 0.7 % 05/21/22 11:10 Neut # (Auto) 3.99 K/uL (1.4-6.5) 05/21/22 11:10 Lymph # (Auto) 2.22 K/uL (1.2-3.4) 05/21/22 11:10 Gregg # (Auto) 0.57 K/uL (0.24-0.82) 05/21/22 11:10 Eos # (Auto) 0.00 K/uL (0-0.50) 05/21/22 11:10 Baso # (Auto) 0.05 K/uL (0-0.2) 05/21/22 11:10 Immature Gran # (Auto) 0.04 K/uL (0.00-0.02) H 05/21/22 11:10 PT 10.8 Seconds (9.0-12.0) 05/21/22 12:34 INR 1.0 (0.9-1.1) 05/21/22 12:34 APTT 26.6 Seconds (21.0-31.0) 05/21/22 12:34 PTT Ratio 1.0 05/21/22 12:34 Sodium 139 mmol/L (136-145) 05/21/22 11:10 Potassium 3.9 mmol/L (3.5-5.1) 05/21/22 12:35 Chloride 106 mmol/L (98-107) 05/21/22 11:10 Carbon Dioxide 26 mmol/L (21-32) 05/21/22 11:10 Anion Gap 7 (3-11) 05/21/22 11:10 BUN 13 mg/dl (6-23) 05/21/22 11:10 Creatinine 0.92 mg/dl (0.6-1.4) 05/21/22 11:10 Est Cr Clr Drug Dosing 92.6 ml/min 05/21/22 11:10 Est GFR ( Amer) 98.0 ml/min 05/21/22 11:10 Est GFR (Non-Af Amer) 84.6 ml/min 05/21/22 11:10 BUN/Creatinine Ratio 14.1 (10-20) 05/21/22 11:10 Glucose 99 mg/dl (70-99(Fasting)) 05/21/22 11:10 POC Glucose 97 mg/dl (70-99) 05/21/22 11:26 Calcium 9.1 mg/dl (8.5-10.1) 05/21/22 11:10 Magnesium 2.1 mg/dl (1.7-2.4) 05/21/22 11:10 Total Bilirubin 0.8 mg/dl (0.2-1.0) 05/21/22 11:10 AST 16 U/L (13-39) 05/21/22 12:35 ALT 13 U/L (7-52) 05/21/22 11:10 Alkaline Phosphatase 74 U/L (34-104) 05/21/22 11:10 Troponin I High Sens 15.6 pg/ml (0-20) 05/21/22 11:10 Total Protein 7.0 gm/dl (6.0-8.3) 05/21/22 11:10 Albumin 4.4 gm/dl (3.4-5.0) 05/21/22 11:10 Globulin 2.6 gm/dl (2.5-4.0) 05/21/22 11:10 Albumin/Globulin Ratio 1.7 (0.9-2) 05/21/22 11:10 SARS-CoV-2 (PCR) NEGATIVE (Negative) 05/21/22 11:20 Influenza Type A (PCR) Negative (Neg) 05/21/22 11:20 Influenza Type B (PCR) Negative (Neg) 05/21/22 11:20 RSV (RT-PCR) Negative (Neg) 05/21/22 11:[address] 05/21/22 11:03 CT angio head w con, CT angio neck with con, CT head/brain wo con CLINICAL HISTORY: 71 years-old Male with neuro deficit, acute stroke suspected. Acute strokelike symptoms COMPARISON STUDY: None TECHNIQUE: Unenhanced axial CT scan of the brain is performed. Subsequently, following the IV administration of 117 cc of Optiray, CT angiogram of the head and neck was performed from the skull base to the vertex. Images are reviewed in the axial, sagittal, and coronal planes. 3-D MIPS images are created and assessed. IV contrast was administered without complication. All measurements we re obtained according to NASCET criteria. A dose lowering technique was utilized adhering to the principles of ALARA. CT DOSE: 1242.62 mGy.cm FINDINGS: CT BRAIN: There is no acute intracranial hemorrhage, midline shift, hydrocephalus, intracranial mass, territorial ischemia or abnormal extra-axial collections. No abnormal intra-axial or extra-axial enhancement. Coarse calcifications of the falx cerebri. Mild involutional changes of the brain parenchyma. Mastoid air cells and middle ear cavities are clear. No calvarial fracture. Trace mastoid effusions. Moderate to severe mucosal thickening of the paranasal sinuses with chronic postoperative changes of the paranasal sinuses and nasal turbinates. Prior bilateral lens repair. CT ANGIOGRAM OF THE HEAD AND NECK: Three-vessel morphology of the thoracic aorta. There is patency of the innominate and imaged subclavian arteries. Moderate atherosclerotic plaque of the carotid bulbs and proximal cervical segments of the internal carotid arteries, right greater than left resulting in less than 50% stenosis. The bilateral anterior and middle cerebral arteries are also patent. The vertebrobasilar system and posterior cerebral arteries are patent. There is mild multifocal luminal narrowing of the posterior cerebral arteries. There is no aneurysm, high-grade stenosis, or proximal branch occlusion identified. Dural sinuses appear patent. No acute cervical spine fracture. The lung apices are clear without pneumothorax. Unremarkable soft tissues. IMPRESSION: 1. No acute intracranial abnormality. 2. Moderate atherosclerotic plaque of the right greater than left carotid bulbs and proximal cervical segments of the internal carotid arteries resulting in less than 50% stenosis. 3. Otherwise unremarkable CTA of the head and neck. 4. Moderate to severe paranasal sinus disease. ACT 112: Negative or not required by law. The above report was generated using voice recognition software. It may contain grammatical, syntax or spelling errors. Electronically signed by: Leo Hernandez M.D. 05/21/2022 12:46 PM Head CTA 05/21/22 11:03 CT angio head w con, CT angio neck with con, CT head/brain wo con CLINICAL HISTORY: 71 years-old Male with neuro deficit, acute stroke suspected. Acute strokelike symptoms COMPARISON STUDY: None TECHNIQUE: Unenhanced axial CT scan of the brain is performed. Subsequently, following the IV administration of 117 cc of Optiray, CT angiogram of the head and neck was performed from the skull base to the vertex. Images are reviewed in the axial, sagittal, and coronal planes. 3-D MIPS images are created and assessed. IV contrast was administered without complication. All measurements were obtained according to NASCET criteria. A dose lowering technique was utilized adhering to the principles of ALARA. CT DOSE: 1242.62 mGy.cm FINDINGS: CT BRAIN: There is no acute intracranial hemorrhage, midline shift, hydrocephalus, intracranial mass, territorial ischemia or abnormal extra-axial collections. No abnormal intra-axial or extra-axial enhancement. Coarse calcifications of the falx cerebri. Mild involutional changes of the brain parenchyma. Mastoid air cells and middle ear cavities are clear. No calvarial fracture. Trace mastoid effusions. Moderate to severe mucosal thickening of the paranasal sinuses with chronic postoperative changes of the paranasal sinuses and nasal turbinates. Prior bilateral lens repair. CT ANGIOGRAM OF THE HEAD AND NECK: Three-vessel morphology of the thoracic aorta. There is patency of the i nnominate and imaged subclavian arteries. Moderate atherosclerotic plaque of the carotid bulbs and proximal cervical segments of the internal carotid arteries, right greater than left resulting in less than 50% stenosis. The bilateral anterior and middle cerebral arteries are also patent. The vertebrobasilar system and posterior cerebral arteries are patent. There is mild multifocal luminal narrowing of the posterior cerebral arteries. There is no aneurysm, high-grade stenosis, or proximal branch occlusion identified. Dural sinuses appear patent. No acute cervical spine fracture. The lung apices are clear without pneumothorax. Unremarkable soft tissues. IMPRESSION: 1. No acute intracranial abnormality. 2. Moderate atherosclerotic plaque of the right greater than left carotid bulbs and proximal cervical segments of the internal carotid arteries resulting in less than 50% stenosis. 3. Otherwise unremarkable CTA of the head and neck. 4. Moderate to severe paranasal sinus disease. ACT 112: Negative or not required by law. The above report was generated using voice recognition software. It may contain grammatical, syntax or spelling errors. Electronically signed by: Leo Hernandez M.D. 05/21/2022 12:46 PM Neck CTA 05/21/22 11:03 CT angio head w con, CT angio neck with con, CT head/brain wo con CLINICAL HISTORY: 71 years-old Male with neuro deficit, acute stroke suspected. Acute strokelike symptoms COMPARISON STUDY: None TECHNIQUE: Unenhanced axial CT scan of the brain is performed. Subsequently, following the IV administration of 117 cc of Optiray, CT angiogram of the head and neck was performed from the skull base to the vertex. Images are reviewed in the axial, sagittal, and coronal planes. 3-D MIPS images are created and assessed. IV contrast was administered without complication. All measurements were obtained according to NASCET criteria. A dose lowering technique was utilized adhering to the principles of ALARA. CT DOSE: 1242.62 mGy.cm FINDINGS: CT BRAIN: There is no acute intracranial hemorrhage, midline shift, hydrocephalus, intracranial mass, territorial ischemia or abnormal extra-axial collections. No abnormal intra-axial or extra-axial enhancement. Coarse calcifications of the falx cerebri. Mild involutional changes of the brain parenchyma. Mastoid air cells and middle ear cavities are clear. No calvarial fracture. Trace mastoid effusions. Moderate to severe mucosal thickening of the paranasal sinuses with chronic postoperative changes of the paranasal sinuses and nasal turbinates. Prior bilateral lens repair. CT ANGIOGRAM OF THE HEAD AND NECK: Three-vessel morphology of the thoracic aorta. There is patency of the innominate and imaged subclavian arteries. Moderate atherosclerotic plaque of the carotid bulbs and proximal cervical segments of the internal carotid arteries, right greater than left resulting in less than 50% stenosis. The bilateral anterior and middle cerebral arteries are also patent. The vertebrobasilar system and posterior cerebral arteries are patent. There is mild multifocal luminal narrowing of the posterior cerebral arteries. There is no a neurysm, high-grade stenosis, or proximal branch occlusion identified. Dural sinuses appear patent. No acute cervical spine fracture. The lung apices are clear without pneumothorax. Unremarkable soft tissues. IMPRESSION: 1. No acute intracranial abnormality. 2. Moderate atherosclerotic plaque of the right greater than left carotid bulbs and proximal cervical segments of the internal carotid arteries resulting in less than 50% stenosis. 3. Otherwise unremarkable CTA of the head and neck. 4. Moderate to severe paranasal sinus disease. ACT 112: Negative or not required by law. The above report was generated using voice recognition software. It may contain grammatical, syntax or spelling errors. Electronically signed by: Leo Hernandez M.D. 05/21/2022 12:46 PM Code Status & VTE Plan VTE Prophylaxis Plan VTE Prophylaxis will be ordered: Yes
--- NOTE | 2022-05-21 16:17 | Magnetic Resonance Report ---
MR brain wo con HISTORY: 71 years-old Male Concern for Stroke acute strokelike symptoms COMPARISON: Head CT of same day TECHNIQUE: Multi planar multisequence MRI of the brain was obtained without the use of IV contrast FINDINGS: No restricted diffusion. Midline structures are unremarkable. No acute intracranial hemorrhage, midli ne shift, abnormal extra-axial collection, hydrocephalus or intracranial mass. Minimal involutional c hanges with minimal punctate T2/FLAIR hyperintense foci throughout the white matter favoring early ch ronic microvascular ischemic disease. Skull and soft tissues are unremarkable. Prior bilateral lens repair. Moderate to severe paranasal si nus disease. Trace mastoid effusions. IMPRESSION: 1. No acute intracranial abnormality. No acute or subacute infarct. 2. Paranasal sinus disease as above. ACT 112: Negative or not required by law. The above report was generated using voice recognition software. It may contain grammatical, syntax o r spelling errors. Electronically signed by: Leo Hernandez M.D. 05/21/2022 4:15 PM
[2022-05-21] MEDS ORDERED: ACETAMINOPHEN 325 MG TAB PO PRN (16:49)
[2022-05-21] MEDS ORDERED: ONDANSETRON INJ 2 MG/ML 2 ML VIAL IV PRN (16:49)
[2022-05-21] MEDS: ASPIRIN 81 MG ECTAB PO SCH (17:55)
[2022-05-21] MEDS: ROSUVASTATIN CALCIUM 10 MG TAB PO SCH (17:56)
[2022-05-21] MEDS: CITALOPRAM 20 MG TAB PO SCH (17:56)
[2022-05-21] MEDS: SODIUM CHLORIDE 0.9% 1000ML 1,000 ML IV SCH (17:56)
[2022-05-21] MEDS: amLODIPine BESYLATE 5 MG TAB PO SCH (17:56)
[2022-05-21] MEDS: LOSARTAN POTASSIUM 50 MG TAB PO SCH (17:56)
[2022-05-21 22:25] LABS: Adenovirus PCR Not Detected (NotDetected); Bordetella parapertussis PCR Not Detected (NotDetected); Bordetella pertussis PCR Not Detected (NotDetected); Chlamydia pneumoniae PCR Not Detected (NotDetected); Coronavirus 229E PCR Not Detected (NotDetected); Coronavirus CoV-2 (COVID19)PCR Not Detected (NotDetected); Coronavirus HKU1 PCR Not Detected (NotDetected); Coronavirus NL63 PCR Not Detected (NotDetected); Coronavirus OC43PCR Not Detected (NotDetected); Human Metapneumovirus PCR Not Detected (NotDetected); Influenza A PCR Not Detected (NotDetected); Influenza B PCR Not Detected (NotDetected); Mycoplasma pneumoniae PCR Not Detected (NotDetected); Parainfluenza Virus 1 PCR Not Detected (NotDetected); Parainfluenza Virus 2 PCR Not Detected (NotDetected); Parainfluenza Virus 3 PCR Not Detected (NotDetected); Parainfluenza Virus 4 PCR Not Detected (NotDetected); Respiratory Syncytial VirusPCR Not Detected (NotDetected); Rhinovirus/Enterovirus PCR Not Detected (NotDetected)
[2022-05-22] MEDS: SODIUM CHLORIDE 0.9% 1000ML 1,000 ML IV SCH (06:29)
[2022-05-22] MEDS ORDERED: LEVOTHYROXINE SODIUM 150 MCG TABLET PO SCH (06:30)
[2022-05-22 07:57] LABS: Basophils # (auto) 0.04 K/uL (0-0.2); Basophils % (auto) 0.6 %; Eosinophils # (auto) 0.14 K/uL (0-0.50); Eosinophils % (auto) 2.1 %; Hemoglobin 14.4 g/dl (14.0-18.0); Immature Granulocytes # (auto) 0.02 K/uL (0.00-0.02); Immature Granulocytes % (auto) 0.3 %; Lymphocytes # (auto) 2.14 K/uL (1.2-3.4); Lymphocytes % (auto) 32.2 %; Mean Corpuscular Hgb Conc 34.3 g/dL (32.0-36.0); Mean Corpuscular Volume 90.5 fL (80.0-100.0); Mean Platelet Volume 10.3 fL (9.4-12.4); Monocytes # (auto) 0.47 K/uL (0.24-0.82); Monocytes % (auto) 7.1 %; Neutrophils # (auto) 3.84 K/uL (1.4-6.5); Neutrophils % (auto) 57.7 %; Platelet Count 153 K/uL (130-400); RDW Coefficient of Variation 13.3 % (11.5-14.5); RDW Standard Deviation 43.8 fL (36.4-46.3); Red Blood Count 4.64 M/uL (4.63-6.08); White Blood Count 6.65 K/ul (4.8-10.8)
[2022-05-22] MEDS: ASPIRIN 81 MG ECTAB PO SCH (08:35)
[2022-05-22] MEDS: ROSUVASTATIN CALCIUM 10 MG TAB PO SCH (08:35)
[2022-05-22] MEDS: CITALOPRAM 20 MG TAB PO SCH (08:35)
[2022-05-22] MEDS: LOSARTAN POTASSIUM 50 MG TAB PO SCH (08:35)
[2022-05-22] MEDS: amLODIPine BESYLATE 5 MG TAB PO SCH (08:36)
[2022-05-22 08:39] LABS: Estimated Average Glucose 105 mg/dl; Hemoglobin A1C 5.3 % (4.5-5.6)
[2022-05-22] MEDS ORDERED: ENOXAPARIN INJ 40 MG/0.4 ML SYR SQ SCH (09:00)
[2022-05-22] MEDS ORDERED: TAMSULOSIN HCL 0.4 MG CAP PO SCH (09:00)
[2022-05-22 09:49] LABS: Albumin Level 4.1 gm/dl (3.4-5.0); BUN Creatinine Ratio 15.1 (10-20); Bilirubin,Total 0.8 mg/dl (0.2-1.0); Calcium 8.7 mg/dl (8.5-10.1); Chol HDL Ratio 2.9 (0-5); Creatinine Clr Calc Pharmacy 92.2 ml/min; Est GFR (African American) 96.7 ml/min; Est GFR (Non-African American) 83.5 ml/min; Globulin 2.1 gm/dl (2.5-4.0); Potassium 3.8 mmol/L (3.5-5.1); Total Protein 6.2 gm/dl (6.0-8.3)
--- NOTE | 2022-05-22 16:41 | Discharge Summary ---
Date of Service May 22, 2022 Admission HPI Per Admitting Provider History obtained from review of medical record and patient. Past medical history of chronic sinusitis, hypertension, hyperlipidemia, hypothyroidism, depression, BPH Patient reports bilateral lower extremity numbness and and numbness right upper extremity since last 2 days; more evident since last night. He denies any blurry vision, change in voice, facial droop, weakness of any part. He also complains of generalized weakness and fatigue. Complains of dry cough; attributes this to chronic sinusitis. He reports night sweats as well. He denies any headache, chest pain, shortness of breath, abdominal pain or urinary symptoms. Has history of hypertension; takes amlodipine and losartan. Reports that he is compliant with medications. He reports history of chronic sinusitis; recently completed antibiotic course. No history of smoking or drinking alcohol. On presentation to the ED, he was found to be hypertensive with blood pressure of 199/113; other vitals were stable. CBC and CMP were unremarkable. CT head was done; no acute abnormality. CTA is negative for any significant finding; has moderate atherosclerotic plaque of right greater than left carotid bulb and proximal cervical segment of internal carotid arteries resulting in less than 50% stenosis. Patient is admitted to telemetry for for hypertensive urgency and strokelike symptoms. Admission Exam Per Admitting Provider Constitutional: WD/WN, vitals as above, NAD, sitting up in bed, pleasant, conversing easily Respiratory: normal respiratory effort, lungs clear to auscultation, no wheeze, rales, rhonchi. Normal insp/exp effort, no accessory muscle use Cardiovascular: RRR, no murmur, no edema Vessels: no JVD or carotid bruit Chest: normal inspection of chest Abdomen: normal bowel sounds, soft, nontender, no hepatosplenomegaly Musculoskeletal: no cyanosis or clubbing, extremities motor strength 5/5 Skin: no rashes, warm and dry normal turgor Neurologic: PERRL, EOMI, accommodation nl, no face palsy, no dysarthria CN's II- XI intact bilaterally and moves all extremities Psychiatric: A+Ox3, euthymic affect Lymphatic: no cervical or axillary lymphadenopathy : deferred Principal Diagnosis Strokelike symptoms Possible TIA Hypertensive urgency Discharge Exam Constitutional: WD/WN, vitals as above, NAD, sitting up in bed, pleasant, conversing easily Respiratory: normal respiratory effort, lungs clear to auscultation, no wheeze, rales, rhonchi. Normal insp/exp effort, no accessory muscle use Cardiovascular: RRR, no murmur, no edema Vessels: no JVD or carotid bruit Chest: normal inspection of chest Abdomen: normal bowel sounds, soft, nontender, no hepatosplenomegaly Musculoskeletal: no cyanosis or clubbing, extremities motor strength 5/5 Skin: no rashes, warm and dry normal turgor Neurologic: PERRL, EOMI, accommodation nl, no face palsy, no dysarthria CN's II- XI intact bilaterally and moves all extremities Psychiatric: A+Ox3, euthymic affect Lymphatic: no cervical or axillary lymphadenopathy : deferred Discharge Data Allergies Allergy/AdvReac Type Severity Reaction Status Date / Time No Known Allergies Allergy Verified 05/21/22 15:21 Consultations 05/21/22 14:25 ED Decision to Admit Stat Ordered Studies 05/21/22 11:03 CT angio head w con Stat CT angio neck with con Stat CT head/brain wo con Stat 05/21/22 14:57 MRI Brain [MR brain wo con] Routine Hospital Course (1) Stroke-like symptom: (2) TIA (transient ischemic attack): (3) Hypertensive urgency: 71-year-old male with past medical history of hypertension, hyperlipidemia presents with bilateral feet numbness. He also complained of generalized weakness and dry cough. He was hypertensive to 199/113 on admission. Other vital stable. CT headno acute abnormality; moderate to severe paranasal sinus disease. CT angio head and neckmoderate atherosclerotic plaque of the right greater than left carotid bulbs and proximal cervical segments of the internal carotid arteries resulting in less than 50% stenosis. Patient was admitted to telemetry for further suspicion of strokelike symptoms/TIA. MRI brain was done which did not show any ischemic stroke. His losartan was increased from 50mg to 100 mg for hypertension. His amlodipine was continued. Vitamin B12 level was 333 pg/ml; borderline. He was prescribed 1000 mcg of vitamin B12. Echocardiogram was done with bubble study; Ejection fraction was 55 to 60%; patent foramen ovale was present. Patient was informed regarding the finding. PT OT evaluation was done; recommended to be discharged home. Patient was discharged home with instruction to follow-up with his primary care doctor. Total Time Total Time Spent Total Time Spent (In Minutes): 40 Total Time Includes: Examination of the Patient, Discharge Planning, Medication Reconciliation, Communication With Other Providers and Other Discharge Plan Discharge Items Patient Disposition: Home - Self-Care Reason For Visit: TINGLING DOWN LEG, LEFT ARM NUMBNESS Discharge Diagnosis: Strokelike symptoms Hypertensive urgency. Activity: Resume your previous activity Non-emergency contact: Primary Care Provider Call non-emergency contact if: you have any medication questions and your symptoms worsen Follow-up/Referrals: Devin Catherine MD [Primary Care Provider] - (Date & Time 05/25/2022 11:00 AM Provider Kailey Green MD Department General Internal Medicine [facility] ) Diet: Regular Addtl Attending Provider Instructions: You were admitted to the hospital with strokelike symptoms. Work-up during the hospitalization did not reveal any stroke. Please continue to take aspirin and Lipitor. Your blood pressure was found to be on the higher side during the hospitalization. Recommend that you increase losartan from 50 mg once daily(1 tablet) to 100 mg once daily( 2tablets). Please measure your blood pressure daily and keep a record. Your vitamin B12 level was found to be on the lower side( 333 pg/ml). Please take 1000 mg of vitamin B-12 every day. Recheck your level with your primary care doctor in about 2-3 months. An appointment with your primary care doctor for May 25 at 11: 00 am Pending Studies at Discharge: No Stand-Alone Forms: [facility], Smoking Cessation Medications and DC Order Prescriptions: New cyanocobalamin (vitamin B-12) [Vitamin B-12] 500 mcg tablet 1,000 mcg PO DAILY Qty: 60 0RF Continued amlodipine 5 mg tablet 5 mg PO DAILY citalopram 20 mg tablet 20 mg PO DAILY tamsulosin 0.4 mg capsule 0.4 mg PO DAILY levothyroxine 150 mcg tablet 150 mcg PO DAILY azelastine 137 mcg (0.1 %) aerosol,spray 1 spray INTRANASAL BID albuterol sulfate 90 mcg/actuation HFA aerosol inhaler 1 puff INHALATION 2XD PRN (Reason: Shortness Of Breath) rosuvastatin 10 mg tablet 10 mg PO DAILY aspirin 81 mg Capsule 81 mg PO DAILY Changed losartan 50 mg tablet 100 mg PO DAILY Qty: 60 0RF Discharge Orders: Discharge Order (Routine); Ordered 05/22/22 Ordered By: Marquise Sanchez Admission Data Admit Date/Time: 05/21/22 14:57 Attending Provider: Marquise Sanchez Admnina Provider: Marquise Sanchez Primary Care Provider: Devin Catherine Other Providers: Marquise Sanchez Other Interventions: Discharge Summary Assessment (RN) Last Done: 05/22/22 12:21
--- NOTE | 2022-05-22 17:14 | Communication Note ---
Date of Service: May 22, 2022 Code 44 attestation: 71-year-old male was admitted with strokelike symptoms likely secondary to hypertensive urgency in the patient was managed accordingly and was ruled out for any stroke by doing appropriate imaging studies. He was sent home today any stable medical condition. By CMS guidelines, a determination that the admission or continued stay is not medically necessary has been made by a member of the UR committee and a physician for this hospital stay, therefore a Code 44 will be completed and the Inpatient admission will be changed to outpatient. Dr Anthony Ryan Member UR Committee
--- NOTE | 2022-05-22 18:18 | Electrocardiogram Report ---
Test Reason : Blood Pressure : / mmHG Vent. Rate : 095 BPM Atrial Rate : 095 BPM P-R Int : 208 ms QRS Dur : 084 ms QT Int : 368 ms P-R-T Axes : 041 033 041 degrees QTc Int : 462 ms Sinus rhythm with Premature supraventricular complexes in a pattern of bigeminy Abnormal ECG When compared with ECG of 25-FEB-2018 11:31, Premature supraventricular complexes are now Present Nonspecific T wave abnormality now evident in Anterior leads Confirmed by Jarad Dowell ([id number]) on 05/22/2022 6:17:59 PM Referred By: REFERRED SELF Confirmed By:Volodymyr Dowell
== END 2022-05-22 13:00 | disposition home or self-care (01) ==
LOC: ED 10:29 → 2S 14:57 → INTOOBSV 14:57 → 2S 17:00
DX: R94.31 Abnormal electrocardiogram [ECG] [EKG]; R20.2 Paresthesia of skin; I49.1 Atrial premature depolarization; N40.0 Benign prostatic hyperplasia without lower urinary tract symptoms; E03.9 Hypothyroidism, unspecified; Z79.899 Other long term (current) drug therapy; Z79.890 Hormone replacement therapy; I10 Essential (primary) hypertension; I16.0 Hypertensive urgency; R61 Generalized hyperhidrosis; R53.1 Weakness; R20.0 Anesthesia of skin; I65.23 Occlusion and stenosis of bilateral carotid arteries; R05.8 Other specified cough; F32.A Depression, unspecified; Z20.822 Contact with and (suspected) exposure to COVID-19; E78.5 Hyperlipidemia, unspecified; J32.4 Chronic pansinusitis; Z79.82 Long term (current) use of aspirin